=== PATIENT | female | born 1930 | race Caucasian/White ===

== ENCOUNTER → 2017-01-14 | Day surgery (SDC) | payer MEDICARE, OTHER, SELFPAY ==
[~2017-01-14] VITALS: Ht 167.6 cm; Wt 57.7 kg
[~2017-01-14] MED LIST: ASPIRIN EC81 MG PO; IMITREX100 MG PO; KLOR-CON 1010 MEQ PO; LASIX20 MG PO; NITROQUIK SL0.4 MG SL; NORVASC5 MG PO; PRILOSEC20 MG PO; PROAIR HFA8.5 GM INH; TENORMIN50 MG PO; WELCHOL625 MG PO
[2017-01-14 07:40] LABS: HCT 40.1 % (37.0-47.0); HGB 13.2 g/dl (12.5-16.0); MCH 33.3 pg (25.0-31.0); MCHC 32.9 g/dL (32.0-36.0); MCV 101.3 fL (78.0-100.0); PLT 247 K/uL (150-400); RBC 3.96 M/uL (4.20-5.40); WBC 5.3 K/uL (4.0-10.5)
[2017-01-14 07:55] LABS: ALBUMIN 4.6 g/dL (3.4-4.8); BILIRUBIN - TOTAL 0.6 mg/dL (0.1-1.0); CREATININE 0.9 mg/dL (0.5-1.0); GLOBULIN (CALCULATION) 2.5 g/dL (2.2-4.2); TOTAL PROTEIN 7.1 g/dL (6.4-8.3)
== END | disposition home or self-care (01) ==
LOC: FAS 06:16
PROVIDERS: Surgery
DX: K29.50 Unspecified chronic gastritis without bleeding (principal); K44.9 Diaphragmatic hernia without obstruction or gangrene; I11.0 Hypertensive heart disease with heart failure; I50.9 Heart failure, unspecified; J44.9 Chronic obstructive pulmonary disease, unspecified; J45.909 Unspecified asthma, uncomplicated; M19.90 Unspecified osteoarthritis, unspecified site; G43.909 Migraine, unspecified, not intractable, without status migrainosus; Z86.73 Personal history of transient ischemic attack (TIA), and cerebral infarction without residual deficits; Z88.0 Allergy status to penicillin; Z88.2 Allergy status to sulfonamides; Z88.8 Allergy status to other drugs, medicaments and biological substances; Z86.711 Personal history of pulmonary embolism; Z96.659 Presence of unspecified artificial knee joint; Z90.710 Acquired absence of both cervix and uterus; Z98.890 Other specified postprocedural states; Z79.899 Other long term (current) drug therapy
CPT/HCPCS: 36415; 80053; 88305; J2704

== ENCOUNTER 2022-02-07 18:54 | Emergency (ER) | payer MEDICARE ==
[~2022-02-07 18:54] MED LIST changes: +ACETAMINOPHEN325 MG PO/GT; +ACETAMINOPHEN500 M1 PO; +AMIODARONE HCL200 MG PO; +AMIODARONE HCL400 MG PO; +BACLOFEN 10MG T10 MG PO; +COLACE100 MG PO; +COUMADIN 1MG TAB1 MG PO; +COUMADIN4 MG PO; +DESENEX85 GM TOP; +DULCOLAX5 MG PO; +ENEMA133 M1 PR; +FEOSOL325 MG PO; +FOLIC ACID1 MG PO; +FUROSEMIDE 20MG20 MG PO; +IPRATROPIU0.2 MG/1 M NEB; +LAXATIVE SUPPOS10 MG PR; +LEVALBUTER0.63 MG/3 NEB; +LIDOCAINE 5% P1 EACH TOP; +LOVENOX60 MG/0.6 SC; +MELATONIN5 M2 PO; +MICON-GUARD 2% TOP; +MILK OF MA400 MG/5 M PO; +MIRALAX17 GM PO; +MLYLANTA/MAALOX30 ML PO; +MYLANTA MAXIMU355 ML PO; +NEBULIZER UNIT NEB; +NORCO 5-325 TA1 EACH PO; +ONDANSETRON HCL4 MG PO; +OXY-IR 5MG5 MG PO; +OXYGEN; +PROTONIX 40MG T40 MG PO; +PROTONIX40 MG PO; +REMOVE EXT; +SENOKOT8.6 MG PO; +TAMSULOSIN HCL0.4 MG PO; +XARELTO10 MG PO; +ZANAFLEX2 MG PO
[2022-02-07] MEDS ORDERED: VIBRAMYCIN100 MG PO (20:55)
[2022-02-08] MEDS ORDERED: VENTOLIN HFA IN18 GM INH ×2 (14:12→14:13)
[2022-02-08] MEDS ORDERED: IPRAT-ALBUT 0.5-3 ML PO (14:14)
[2022-02-08] MEDS ORDERED: ANTIVERT12.5 MG PO (14:15)
[2022-02-08] MEDS ORDERED: COLESTID1 GM PO (14:16)
[2022-02-08] MEDS ORDERED: XARELTO10 MG PO (14:18)
== END 2022-02-07 20:51 | disposition home or self-care (01) ==
LOC: FER 18:54
DX: S51.812A Laceration without foreign body of left forearm, initial encounter (principal); J44.9 Chronic obstructive pulmonary disease, unspecified; Z23 Encounter for immunization; Z88.0 Allergy status to penicillin; Z88.2 Allergy status to sulfonamides; W19.XXXA Unspecified fall, initial encounter; Y92.009 Unspecified place in unspecified non-institutional (private) residence as the place of occurrence of the external cause
CPT/HCPCS: 90471; 90715

== ENCOUNTER 2022-02-08 06:30 | Inpatient (IN) | payer MEDICARE ==
[~2022-02-08] VITALS: Ht 162.6 cm; Wt 56.9 kg
[~2022-02-08 06:30] MED LIST changes: +VIBRAMYCIN100 MG PO
[2022-02-08 07:22] LABS: BASOPHIL 0.6 % (0-2); EOSINOPHIL 0.9 % (0-7); HCT 38.3 % (37.0-47.0); HGB 12.8 g/dl (12.5-16.0); LYMPHOCYTE 11.2 % (15-48); MCH 35.8 pg (25.0-31.0); MCHC 33.4 g/dL (32.0-36.0); MONOCYTE 8.9 % (0-12); MPV 9.1 fL (6.0-9.5); NEUTROPHIL 78.1 % (41-80); NRBC 0; PLT 187 K/uL (150-400); RBC 3.58 M/uL (4.20-5.40); RDW 14.8 % (11.5-14.0); WBC 8.9 K/uL (4.0-10.5)
[2022-02-08 08:03] LABS: BILIRUBIN NEGATIVE (NEGATIVE); BLOOD NEGATIVE Ery/uL (NEGATIVE); CLARITY CLEAR (CLEAR); COLOR YELLOW (YELLOW); GLUCOSE (U) NORMAL (NORMAL); LEUKOCYTES 1+ Leu/uL (NEGATIVE); NITRITE NEGATIVE (NEGATIVE); PROTEIN TRACE (LOW) mg/dL (NEGATIVE); SPECIFIC GRAVITY 1.025 (1.001-1.030); UROBILINOGEN 0.2 mg/dL (0.2-1.0)
[2022-02-08 08:06] LABS: ALBUMIN 3.6 g/dL (3.4-5.0); BILIRUBIN - TOTAL 0.6 mg/dL (0.2-1.0); BUN/CREAT RATIO (CALC) 18.9 RATIO; CREATININE 0.95 mg/dL (0.51-0.95); GLOBULIN (CALCULATION) 2.5 g/dL; MAGNESIUM 1.3 mg/dL (1.8-2.4); POTASSIUM 4.4 mmol/L (3.5-5.1); TOTAL PROTEIN 6.1 g/dL (6.4-8.2)
[2022-02-08 08:13] LABS: AMORPHOUS URATES CRYSTALS MODERATE; BACTERIA TRACE; SQUAMOUS EPITHELIAL CELLS RARE
[2022-02-08] MEDS ORDERED: VENTOLIN HFA IN18 GM INH ×2 (14:12→14:13)
[2022-02-08] MEDS ORDERED: IPRAT-ALBUT 0.5-3 ML PO (14:14)
[2022-02-08] MEDS ORDERED: ANTIVERT12.5 MG PO (14:15)
[2022-02-08] MEDS ORDERED: COLESTID1 GM PO (14:16)
[2022-02-08] MEDS ORDERED: XARELTO10 MG PO (14:18)
[2022-02-09 06:32] LABS: BASOPHIL 0.4 % (0-2); EOSINOPHIL 0.9 % (0-7); HCT 33.1 % (37.0-47.0); HGB 10.8 g/dl (12.5-16.0); LYMPHOCYTE 9.6 % (15-48); MCH 35.6 pg (25.0-31.0); MCHC 32.6 g/dL (32.0-36.0); MCV 109.2 fL (78.0-100.0); MONOCYTE 11.1 % (0-12); MPV 9.2 fL (6.0-9.5); NEUTROPHIL 77.7 % (41-80); NRBC 0; PLT 164 K/uL (150-400); RBC 3.03 M/uL (4.20-5.40); WBC 6.7 K/uL (4.0-10.5)
[2022-02-09 06:52] LABS: BUN/CREAT RATIO (CALC) 16.7 RATIO; CREATININE 0.78 mg/dL (0.51-0.95)
[2022-02-10 05:50] LABS: BASOPHIL 0.6 % (0-2); EOSINOPHIL 3.4 % (0-7); HCT 31.8 % (37.0-47.0); HGB 10.4 g/dl (12.5-16.0); LYMPHOCYTE 13.1 % (15-48); MCH 35.7 pg (25.0-31.0); MCHC 32.7 g/dL (32.0-36.0); MCV 109.3 fL (78.0-100.0); MONOCYTE 12.4 % (0-12); MPV 9.3 fL (6.0-9.5); NEUTROPHIL 70.2 % (41-80); NRBC 0; PLT 160 K/uL (150-400); RBC 2.91 M/uL (4.20-5.40)
[2022-02-10 06:08] LABS: BUN/CREAT RATIO (CALC) 11.2 RATIO; CREATININE 0.89 mg/dL (0.51-0.95); MAGNESIUM 1.8 mg/dL (1.8-2.4)
--- NOTE | 2022-02-11 08:42 | NUR ---
PATIENT O2 NOTED TO BE 77-84% ON 4L O2 AND HR 70 WITH MORNING VITALS, I ASSISTED PATIENT WITH USING HER ISB WHEN HER HR WENT UP TO AFIB 145-156BPM WAS HAD NO C/O OF CHEST PAIN OR DISTRESS AT THIS TIME, PATIENT CARRING ON CONVERSATION WITH NURSES IN ROOM. RAPID RESPONSE STARTED AT 0800 VITALS:113/57, HR 156, RR30, O291% ON 30%VENTI MASK. EKG SHOWED AFIB. LOPRESSOR 5MGIV PUSH AT 0832, REPORT CALLED TO TCU NURSE JOSÉ LUIS AT 0850, AND PATIENT TRANSFERED TO TCU AT 0855.
--- NOTE | 2022-02-12 13:54 | NUR ---
02/12/22 Ms. Graves lives alone. She has a nebulizer, rw, 3in1, and s. chair. - PCP = Dr. Kent. - Ms. Graves has requested SNF placement at [facility]. A referral has been submitted.
[2022-02-12 23:15] LABS: BILIRUBIN NEGATIVE (NEGATIVE); BLOOD 1+ Ery/uL (NEGATIVE); CLARITY CLEAR (CLEAR); COLOR YELLOW (YELLOW); GLUCOSE (U) NORMAL (NORMAL); LEUKOCYTES NEGATIVE Leu/uL (NEGATIVE); NITRITE NEGATIVE (NEGATIVE); PROTEIN TRACE (LOW) mg/dL (NEGATIVE); SPECIFIC GRAVITY 1.025 (1.001-1.030); UROBILINOGEN 0.2 mg/dL (0.2-1.0)
[2022-02-12 23:25] LABS: BACTERIA TRACE; URINARY WBC RARE
[2022-02-13 05:55] LABS: BASOPHIL 0.4 % (0-2); EOSINOPHIL 5.9 % (0-7); HGB 9.9 g/dl (12.5-16.0); LYMPHOCYTE 8.9 % (15-48); MCH 35.4 pg (25.0-31.0); MCHC 31.9 g/dL (32.0-36.0); MCV 110.7 fL (78.0-100.0); MONOCYTE 13.6 % (0-12); MPV 9.5 fL (6.0-9.5); NEUTROPHIL 70.9 % (41-80); NRBC 0; PLT 176 K/uL (150-400); RDW 14.1 % (11.5-14.0); WBC 7.4 K/uL (4.0-10.5)
[2022-02-13 06:10] LABS: BUN/CREAT RATIO (CALC) 25.3 RATIO; CREATININE 0.91 mg/dL (0.51-0.95); MAGNESIUM 1.6 mg/dL (1.8-2.4); POTASSIUM 4.9 mmol/L (3.5-5.1)
--- NOTE | 2022-02-13 14:00 | NUR ---
02/13/22 A referral was submitted to [facility].
--- NOTE | 2022-02-14 13:18 | NUR ---
PT ON 15 L OXIMIZER WHILE EATING
--- NOTE | 2022-02-14 15:12 | NUR ---
02/14/22 [facility] has approved pending insurance authorization.
--- NOTE | 2022-02-15 14:49 | NUR ---
02/15/22 [facility] received insurance authorization for admission. Dr. Olmos reports that patient is not ready for discharge today. A new authorization will be required if patient is not admitted to [facility] by 02/18/22. A new COVID test is required.
[2022-02-16 04:22] LABS: BASOPHIL 0.5 % (0-2); EOSINOPHIL 4.3 % (0-7); HGB 9.4 g/dl (12.5-16.0); LYMPHOCYTE 4.6 % (15-48); MCH 34.8 pg (25.0-31.0); MCHC 31.3 g/dL (32.0-36.0); MCV 111.1 fL (78.0-100.0); MONOCYTE 4.9 % (0-12); MPV 9.2 fL (6.0-9.5); NEUTROPHIL 85.4 % (41-80); NRBC 0; PLT 251 K/uL (150-400); RDW 13.8 % (11.5-14.0); WBC 6.1 K/uL (4.0-10.5)
[2022-02-16 04:56] LABS: IRON % SATURATION 18.5 %SAT (20-50)
[2022-02-16 05:16] LABS: ALBUMIN 2.2 g/dL (3.4-5.0); BILIRUBIN - TOTAL 0.5 mg/dL (0.2-1.0); BUN/CREAT RATIO (CALC) 29.9 RATIO; C-REACTIVE PROTEIN 3.2 mg/dL (<=0.90); CREATININE 0.77 mg/dL (0.51-0.95); FOLIC ACID (SERUM) 19.3 ng/mL (8.6-58.9); GLOBULIN (CALCULATION) 3.2 g/dL; MAGNESIUM 1.7 mg/dL (1.8-2.4); PHOSPHORUS 2.4 mg/dL (2.6-4.7); POTASSIUM 5.1 mmol/L (3.5-5.1); TOTAL PROTEIN 5.4 g/dL (6.4-8.2)
[2022-02-18 06:40] LABS: BUN/CREAT RATIO (CALC) 26.3 RATIO; CREATININE 0.95 mg/dL (0.51-0.95); MAGNESIUM 1.4 mg/dL (1.8-2.4); POTASSIUM 4.8 mmol/L (3.5-5.1)
[2022-02-18] MEDS ORDERED: DULERA 200 MCG8.8 GM INH (13:34)
[2022-02-18] MEDS ORDERED: ELIQUIS2.5 MG PO (13:34)
[2022-02-18] MEDS ORDERED: MUCINEX 600MG600 MG PO (13:34)
[2022-02-18] MEDS ORDERED: POTASSIUM CHLO10 ME2 PO (13:38)
[2022-02-18] MEDS ORDERED: LOPRESSOR25 MG PO (13:38)
[2022-02-18] MEDS ORDERED: LASIX20 MG PO (13:38)
[2022-02-18] MEDS ORDERED: SINGULAIR10 MG PO (13:38)
--- NOTE | 2022-02-18 13:49 | NUR ---
ORDERED PORTABLE O2 FROM [facility] FOR PT TO BE TRANSPORTED TO [facility] BY HER DAUGHTER. ADVISED TO TAKE THE O2 TANK BACK TO [facility]. DAUGHTER DID NOT WISH TO SIGN THE ABN FOR THE AMBULANCE IN CASE PT INSURANCE DID NOT PAY FOR THE TRANSPORT. DAUGHTER WILL TRANSPORT PT.
== END 2022-02-18 17:09 | DRG 533 ==
LOC: FER 06:30 → FMS 10:01 → FTCU 10:01
PROVIDERS: Internal Medicine; ADMIT Internal Medicine
PROC: B24BZZZ Ultrasonography of Heart with Aorta (ICD-10-PCS; principal; 2022-02-12)
DX: S72.344A Nondisplaced spiral fracture of shaft of right femur, initial encounter for closed fracture (principal); J96.01 Acute respiratory failure with hypoxia; J18.9 Pneumonia, unspecified organism; N30.00 Acute cystitis without hematuria; J44.1 Chronic obstructive pulmonary disease with (acute) exacerbation; J98.11 Atelectasis; J44.0 Chronic obstructive pulmonary disease with (acute) lower respiratory infection; I48.20 Chronic atrial fibrillation, unspecified; I95.1 Orthostatic hypotension; I27.20 Pulmonary hypertension, unspecified; Z20.822 Contact with and (suspected) exposure to COVID-19; W01.0XXA Fall on same level from slipping, tripping and stumbling without subsequent striking against object, initial encounter; I12.9 Hypertensive chronic kidney disease with stage 1 through stage 4 chronic kidney disease, or unspecified chronic kidney disease; N18.30 Chronic kidney disease, stage 3 unspecified; K21.9 Gastro-esophageal reflux disease without esophagitis; S41.111A Laceration without foreign body of right upper arm, initial encounter; I25.10 Atherosclerotic heart disease of native coronary artery without angina pectoris; Z96.653 Presence of artificial knee joint, bilateral; Y95 Nosocomial condition; M81.0 Age-related osteoporosis without current pathological fracture; Z88.0 Allergy status to penicillin; Z88.2 Allergy status to sulfonamides; Z91.09 Other allergy status, other than to drugs and biological substances; Z90.710 Acquired absence of both cervix and uterus; Z82.49 Family history of ischemic heart disease and other diseases of the circulatory system; Z79.01 Long term (current) use of anticoagulants; Z86.711 Personal history of pulmonary embolism; Z86.718 Personal history of other venous thrombosis and embolism; Z79.899 Other long term (current) drug therapy
CPT/HCPCS: 36415; 36600; 71045; 72192; 73522; 73560; 73700; 80048; 80053; 80202; 81001; 82607; 82728; 82746; 82803; 83540; 83550; 83605; 83735; 83880; 84100; 84145; 84484; 85025; 86140; 87088; 93005; 94640; 94667; 94668; 97110; 97162; 97166; 97530; 97530-GP; 97535; G0378; J0692; J0696; J1100; J1885; J2916; J2920; J3370; J3475; J7030; J7050; U0002

== ENCOUNTER 2022-04-20 11:02 | Emergency (ER) | payer MEDICARE ==
[~2022-04-20 11:02] MED LIST changes: +ANTIVERT12.5 MG PO; +COLESTID1 GM PO; +DULERA 200 MCG8.8 GM INH; +ELIQUIS2.5 MG PO; +IPRAT-ALBUT 0.5-3 ML PO; +LOPRESSOR25 MG PO; +MUCINEX 600MG600 MG PO; +POTASSIUM CHLO10 ME2 PO; +SINGULAIR10 MG PO; +VENTOLIN HFA IN18 GM INH
== END 2022-04-20 18:33 | disposition home or self-care (01) ==
LOC: FER 11:02
DX: S60.211A Contusion of right wrist, initial encounter (principal); S50.01XA Contusion of right elbow, initial encounter; S40.021A Contusion of right upper arm, initial encounter; S20.211A Contusion of right front wall of thorax, initial encounter; S50.11XA Contusion of right forearm, initial encounter; S60.221A Contusion of right hand, initial encounter; I10 Essential (primary) hypertension; Z86.718 Personal history of other venous thrombosis and embolism; Z86.711 Personal history of pulmonary embolism; Z79.01 Long term (current) use of anticoagulants; Z87.891 Personal history of nicotine dependence; Z88.0 Allergy status to penicillin; Z88.2 Allergy status to sulfonamides; Z88.8 Allergy status to other drugs, medicaments and biological substances; Z91.018 Allergy to other foods; Z79.899 Other long term (current) drug therapy; X58.XXXA Exposure to other specified factors, initial encounter
CPT/HCPCS: 71250; 73060; 73080; 73090; 93971